=== PATIENT | male | born 1950 | race Caucasian/White ===

== ENCOUNTER 2019-05-22 09:00 | Day surgery (SDC) | payer MEDICARE, OTHER, SELFPAY ==
[2019-05-22] VITALS (7 sets, daily range): BP systolic 108–137; BP diastolic 75–87; PULSE 64–80; RESP 8–16; TEMP 36.3–36.7; O2SAT 92–99; BMI 27.2
--- NOTE | 2019-05-22 | PATH_ITS ---
[facility] Accession Number: [id number] . 01 Material submitted: . PART A: colon - POLYP ASCENDING COLON PART B: colon - RECTO SIGMOID POLYPS . 02 Diagnosis: A. Ascending Colon, Polyp, Biopsy: Tubular adenoma. . B. 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 Hyperplastic polyp in two fragments. No evidence of malignancy or high-grade dysplasia. MRV/05/23/2019 . 02 Electronically signed: . Carol Fairchild MD, Pathologist NPI- [id number] . 01 Gross description: . Received two formalin-filled containers, both labeled with the patient's name: . A. In a container labeled ascending colon polyp, are two fragments of oscar, soft tissue which range in size from less than 0.1 cm to 0.4 x 0.3 x 0.2 cm. All fragments are totally submitted in cassette A. B. In a container labeled rectosigmoid, are three fragments of oscar, soft tissue which range in size from 0.4 x 0.3 x 0.3 cm to 0.9 x 0.8 x 0.7 cm. The two smallest fragments are totally submitted in cassette B1. The largest fragment is trisected and totally submitted in cassette B2. ([id number]) /FRR . 02 Pathologist provided ICD-10: D12.2, D12.7 . 02 CPT . 877623, 103028 Performed at: 01 [facility] [address] [facility], [place], [place] [id number] MD Quinn Rosales MD Phone: [phone] Performed at: 02 [facility] [address] [place] [id number] MD Carol Fairchild MD Phone: [phone]
[2019-05-22] MEDS: SODIUM CHLORIDE 0.9% 1,000 ML 42 ML IV (09:31)
[2019-05-22] MEDS: fentaNYL 250 MCG/5 ML INJ IV (10:46)
[2019-05-22] MEDS: MIDAZOLAM 5 MG/5 ML VIAL IV (10:47)
--- NOTE | 2019-05-22 10:59 | SUR.OPER ---
ERBE CAUTERY USED GROUND PAD ON RIGHT THIGH..SETTINGS PRE SET POLYP
--- NOTE | 2019-05-22 11:08 | PM.HP.1 ---
History of Present Illness Date Patient Seen: 05/22/19 Time Patient Seen: 11:08 Chief complaint: [id number] Narrative: Screening colonoscopy. No colonoscopy within 10 years Patient History Medical History (Updated 05/22/19 @ 11:09 by Viki Hedrick MD) Hypercholesterolemia (Acute) Hypertension (Acute) Social History household members: spouse Family & Social History Social History: household members spouse Meds Home Medications Medication Instructions Recorded Confirmed Type amlodipine 10 mg PO DAILY 05/22/19 05/22/19 History chlorthalidone 25 mg PO DAILY 05/22/19 05/22/19 History losartan 10 mg PO DAILY 05/22/19 05/22/19 History rosuvastatin 20 mg PO DAILY 05/22/19 05/22/19 History Allergies Allergy/AdvReac Type Severity Reaction Status Date / Time No Known Drug Allergies Allergy Verified 05/22/19 09:33 Exam Vital Signs (past 8 hours): - 05/22/19 09:25 Temperature 98.0 F Pulse Rate 80 Respiratory Rate 16 Blood Pressure 135/87 Pulse Oximetry 99 Oxygen Delivery Method Room Air Narrative Exam Narrative: Oropharynx free of lesions Chest clear to auscultation percussion Cardiac exam reveals no S3 or murmur Assessment & Plan Assessment & Plan narrative: Need for screening colonoscopy. Risks, benefits, alternatives have been explained.
--- NOTE | 2019-05-22 11:10 | PM.OP.ENDO ---
Operative Date/Time/Diagnoses Date of procedure: 05/22/19 Time of procedure: 11:10 Pre-op diagnosis: See indication and findings Procedure & Clinicians Study performed: Colonoscopy Same procedure as scheduled: Yes Surgeon: Viki Hedrick Procedure Notes Procedure in detail: After informed consent was obtained the patient was placed in the left lateral decubitus position. The video colonoscope was introduced the rectum slowly advanced to the cecum. Colon was quite tortuous. Preparation was good. On slow withdrawal mucosa was carefully examined. Scope was removed. The patient tolerated procedure well. Blood loss none Complications none Sedation Total sedation time 25 minutes Fentanyl 100 mg Versed 7 mg IV titration Findings 1. 5 mm polyp in the ascending colon Jumbo biopsy removed completely 2. Five 3-4 mm hyperplastic appearing polyps in the sigmoid. These were hot biopsied with no pathology retrieved 3. Two 8 mm sessile polyps were seen in the sigmoid colon. These were cold snared and removed completely and retrieved and placed in same bottle as 2. 4. A 15 mm semi pedunculated polyp was seen just inside the anal verge. This was hot snared and removed completely and placed in same bottle as 2. 5. Scattered left-sided diverticulosis Patient will be informed of biopsy results but will need follow-up colonoscopy in 3 years
--- NOTE | 2019-05-22 11:18 | SUR.PHASEI ---
bedside report given to JEREMIAS Barker. Transferred care of pt to JEREMIAS Barker at this time. Pt in stable condition, vss.
--- NOTE | 2019-05-22 11:20 | SUR.PHASEI ---
RA sat 91%, patient sleeping, put on O2 at 2LNP. resp unlabored.
--- NOTE | 2019-05-22 11:43 | SUR.PHASEI ---
returned care to Richelle Emmanuel RN. Pt. stable, resp unlabored, arouses easily.
== END 2019-05-22 12:03 | disposition home or self-care (01) ==
PROVIDERS: PCP Internal Medicine; Visit Provider Internal Medicine Gastroenterology
PROC: 0DJD8ZZ Inspection of Lower Intestinal Tract, Via Natural or Artificial Opening Endoscopic (ICD-10-PCS; CPT 45378; principal; 2019-05-22 10:30)
DX: Z12.11 Encounter for screening for malignant neoplasm of colon (principal); D12.2 Benign neoplasm of ascending colon; D12.7 Benign neoplasm of rectosigmoid junction; K63.5 Polyp of colon; K57.30 Diverticulosis of large intestine without perforation or abscess without bleeding; E78.00 Pure hypercholesterolemia, unspecified; I10 Essential (primary) hypertension
CPT/HCPCS: 45385; 45384; 45380; 88305; J2250; J3010

== ENCOUNTER → 2019-08-28 13:38 | Outpatient (ROUT) | payer MEDICARE, OTHER, SELFPAY ==
[2019-08-28 14:20] LABS: Aspartate Aminotransferase 27 IU/L (17-59); BUN Creatinine Ratio 15.8 (6-22); Blood Urea Nitrogen 19 mg/dL (9-20); Calcium 10.1 mg/dL (8.4-10.2); Carbon Dioxide 30 mmol/L (22-32); Chloride 97 mmol/L (98-107); Cholesterol 146 mg/dL (140-199); Estimated Glomerular Filt Rate 59.7 mL/min (>60); Glucose 118 mg/dL (80-110); HDL Cholesterol 54 mg/dL (40-60); HEMOLYSIS < 15 (0-50); LDL Cholesterol Calculated 83 mg/dL (<100); Potassium 3.8 mmol/L (3.4-5.1); Sodium 138 mmol/L (137-145); Triglycerides 43 mg/dL (35-150)
[2019-08-28 14:46] LABS: Prostate Specific Antigen 2.96 ng/mL (0.10-4.00)
== END ==
PROVIDERS: PCP Internal Medicine; Visit Provider Internal Medicine
DX: I10 Essential (primary) hypertension (principal); E78.2 Mixed hyperlipidemia; N52.9 Male erectile dysfunction, unspecified
CPT/HCPCS: 80048; 80061; 84153; 84450